=== PATIENT | female | born 2000 | race Two or more races ===

== ENCOUNTER 2024-06-02 23:30 | Emergency (ER) | payer MEDICAID ==
[~2024-06-02] VITALS: Ht 172.7 cm; Wt 88.5 kg
[2024-06-03] MEDS ORDERED: CYCL5TAB PO (01:48)
[2024-06-03] MEDS ORDERED: PRED50TA PO (01:48)
[2024-06-03] MEDS ORDERED: IBUP-1957 PO (01:48)
[2024-06-03 02:18] VITALS: BP 120/82; TEMP 98.5; O2SAT 98
== END 2024-06-03 02:18 | disposition home or self-care (01) ==
LOC: ER 23:46
DX: M54.42 Lumbago with sciatica, left side (principal); M79.605 Pain in left leg; K59.00 Constipation, unspecified